=== PATIENT | female | born 1960 | race Caucasian/White ===

== ENCOUNTER → 2016-04-28 | Outpatient (CLI) | payer MEDICAID | LOC: RAD 10:15 | PROVIDERS: ATTEND Internal Medicine Medical Oncology | DX: C34.12 Malignant neoplasm of upper lobe, left bronchus or lung (principal) | CPT/HCPCS: 71260 ==

== ENCOUNTER → 2016-06-09 | Outpatient (CLI) | payer MEDICAID | LOC: RAD 12:53 | PROVIDERS: ATTEND Internal Medicine Medical Oncology | DX: C34.12 Malignant neoplasm of upper lobe, left bronchus or lung (principal); R10.9 Unspecified abdominal pain | CPT/HCPCS: 71260; 74160 ==

== ENCOUNTER 2016-06-16 11:54 | Outpatient (CLI) | payer MEDICAID ==
[~2016-06-16 11:54] MED LIST: ACETAMINOPHEN 325 MG TABLET PO PRN; DIPHENHYDRAMINE HCL 25 MG CAPSULE PO PRN; FUROSEMIDE INJ/PF 20 MG/2 ML SDV IV PRN; NORMAL SALINE 1000 ML 1,000 ML IV PRN
[2016-06-16 13:20] LABS: HEMATOCRIT 20.9 % (36.0-47.0); HGB HCT DIFFERENCE 0.7; MEAN CORPUSCULAR HEMOGLOBIN 34.1 pg (27.0-33.4); MEAN CORPUSCULAR HGB CONC 34.7 g/dL (32.0-36.0); MEAN CORPUSCULAR VOLUME 98 fl (80-97); RED BLOOD COUNT 2.13 10^6/uL (3.72-5.28); RED CELL DISTRIBUTION WIDTH 21.6 % (11.5-14.0)
[2016-06-16 14:01] LABS: HEMOGLOBIN 7.2 g/dL (12.0-15.5); WHITE BLOOD COUNT 0.6 10^3/uL (4.0-10.5)
[2016-06-16] MEDS ORDERED: NICOTINE 7 MG/24 HR PATCH.TD24 TD ONE (16:00)
[2016-06-16] MEDS ORDERED: NYSTATIN/DEXAMETH/DIPHEN SUSP 120 ML PO PRN (16:00)
[2016-06-16] MEDS ORDERED: OXYCODONE-ACETAMINOPHEN 5-325 MG TABLET PO PRN (16:00)
[2016-06-16] MEDS ORDERED: MORPHINE SULFATE SR 30 MG TABLET PO SCH (22:00)
[2016-06-16] MEDS ORDERED: AMITRIPTYLINE HCL 50 MG TABLET PO SCH (22:00)
[2016-06-17 05:01] LABS: HEMATOCRIT 25.2 % (36.0-47.0); HGB HCT DIFFERENCE 1.8; MEAN CORPUSCULAR HGB CONC 35.9 g/dL (32.0-36.0); RED BLOOD COUNT 2.74 10^6/uL (3.72-5.28); RED CELL DISTRIBUTION WIDTH 22.1 % (11.5-14.0)
[2016-06-17 05:42] LABS: MEAN CORPUSCULAR VOLUME 92 fl (80-97)
[2016-06-17 08:06] VITALS: BP 127/82
[2016-06-17 15:26] LABS: PATH REVIEW PATHOLOGIST REVIEWED
== END 2016-06-17 09:30 | disposition home or self-care (01) ==
LOC: II 11:54 → 5 12:14 → II 06-17 09:30
PROVIDERS: ATTEND Internal Medicine Medical Oncology
PROC: 30233N1 Transfusion of Nonautologous Red Blood Cells into Peripheral Vein, Percutaneous Approach (ICD-10-PCS; 2016-06-16)
PROC: 30233R1 Transfusion of Nonautologous Platelets into Peripheral Vein, Percutaneous Approach (ICD-10-PCS; principal; 2016-06-17)
DX: D64.9 Anemia, unspecified (principal); D70.9 Neutropenia, unspecified; D69.6 Thrombocytopenia, unspecified
CPT/HCPCS: 36415; 36430; 85027; 86850; 86900; 86901; 86920; J1940; J3490; P9016; P9035

== ENCOUNTER 2016-07-13 11:43 | Outpatient (CLI) | payer MEDICAID ==
[~2016-07-13 11:43] MED LIST changes: -ACETAMINOPHEN 325 MG TABLET PO PRN; -DIPHENHYDRAMINE HCL 25 MG CAPSULE PO PRN; -NORMAL SALINE 1000 ML 1,000 ML IV PRN
[2016-07-13] MEDS ORDERED: NORMAL SALINE 250 ML IV PRN (12:35)
[2016-07-13 12:50] LABS: HEMATOCRIT 23.3 % (36.0-47.0); HEMOGLOBIN 8.2 g/dL (12.0-15.5); HGB HCT DIFFERENCE 1.3; MEAN CORPUSCULAR HEMOGLOBIN 33.5 pg (27.0-33.4); MEAN CORPUSCULAR HGB CONC 35.4 g/dL (32.0-36.0); MEAN CORPUSCULAR VOLUME 95 fl (80-97); RED BLOOD COUNT 2.46 10^6/uL (3.72-5.28); RED CELL DISTRIBUTION WIDTH 22.5 % (11.5-14.0); WHITE BLOOD COUNT 16.5 10^3/uL (4.0-10.5)
[2016-07-13] MEDS: DIPHENHYDRAMINE HCL 25 MG CAPSULE PO PRN ×2 (14:49→20:20)
[2016-07-13] MEDS: ACETAMINOPHEN 325 MG TABLET PO PRN ×2 (14:50→20:20)
[2016-07-13 20:59] VITALS: BP 107/71
[2016-07-13 22:11] LABS: HEMOGLOBIN 8.1 g/dL (12.0-15.5); HGB HCT DIFFERENCE 1.3; MEAN CORPUSCULAR HEMOGLOBIN 32.5 pg (27.0-33.4); MEAN CORPUSCULAR HGB CONC 35.3 g/dL (32.0-36.0); MEAN CORPUSCULAR VOLUME 92 fl (80-97); RED BLOOD COUNT 2.49 10^6/uL (3.72-5.28); RED CELL DISTRIBUTION WIDTH 21.6 % (11.5-14.0); WHITE BLOOD COUNT 15.2 10^3/uL (4.0-10.5)
== END 2016-07-13 22:10 | disposition home or self-care (01) ==
LOC: II 11:43 → 2S 11:47 → II 22:10
PROVIDERS: ATTEND Internal Medicine Medical Oncology
PROC: 30233N1 Transfusion of Nonautologous Red Blood Cells into Peripheral Vein, Percutaneous Approach (ICD-10-PCS; principal; 2016-07-13)
PROC: 30233R1 Transfusion of Nonautologous Platelets into Peripheral Vein, Percutaneous Approach (ICD-10-PCS; 2016-07-13)
DX: C34.12 Malignant neoplasm of upper lobe, left bronchus or lung (principal)
CPT/HCPCS: 86900; 86901; 36415; 36430; 86850; 85027; 86920; P9016; P9035; J3490 ×2; J7050

== ENCOUNTER 2016-07-17 05:06 | Inpatient (IN) | payer MEDICAID ==
[2016-07-17] MEDS ORDERED: ONDANSETRON HCL INJ/PF 4 MG/2 ML SDV IV ONE (08:13)
[2016-07-17] MEDS ORDERED: NORMAL SALINE 1000 ML 500 ML IV ONE (08:13)
--- NOTE | 2016-07-17 08:18 | ER Document Report ---
ED General - General Mode of Arrival: Medic Information source: Patient, Relative - daughter TRAVEL OUTSIDE OF THE [place] IN LAST 30 DAYS: No - HPI Onset: This morning - 0345 Associated symptoms: Other - see notes above <ILDEFONSO MYERS - Last Filed: 07/17/16 11:38> <ALISON HINTON - Last Filed: 07/17/16 11:41> - General Chief Complaint: Syncope Stated Complaint: SYNCOPAL EPISODE Notes: 56 year old female with history of left upper lobe lung cancer, rheumatoid arthritis, CAD, diabetes mellitus Type II, and hypothyroidism presents to the ED via EMS after being found on the floor by her daughter yelling for help at 0345 this morning. Daughter states that the patient was diaphoretic, had vomited , was having shaking episodes, and having difficulty breathing. Daughter was able to calm the patient's breathing befoer EMS arrived. Daughter reports that the patient had 2-3 episodes where the patient's body would go tense and shake for a couple seconds. Patient was not talking during these episodes, but would immediately return to talking after these episodes. Patient is complaining of bilateral arm numbness and clenched hands. Daughter states that the clenched hands are new, and started over the past 2 days. Patient receives chemotherapy once a month which affects the patient's electrolyte balance as per the daughter. Patient received a blood and plasma transfusion and a neupogen shot 4 days ago and usually feels much better following the transfusions. Patient reports that she feels much better than earlier this morning. Patient was started on Levaquin on 07/09/2016, but the daughter is unsure why. (ILDEFONSO MYERS) (ALISON HINTON) - Related Data Allergies/Adverse Reactions: No Known Allergies Allergy (Unverified 02/12/16 09:38) Past Medical History - General Information source: Patient - Social History Smoking Status: Current Every Day Smoker Cigarette use (# per day): Yes - 0.25 ppd Family History: Reviewed & Not Pertinent - Past Medical History Cardiac Medical History: Reports: Hx Coronary Artery Disease - CHOLESTEROL Denies: Hx Heart Attack Pulmonary Medical History: Reports: Hx Bronchitis, Hx COPD, Hx Pneumonia Denies: Hx Asthma Neurological Medical History: Denies: Hx Cerebrovascular Accident, Hx Seizures Endocrine Medical History: Reports: Hx Diabetes Mellitus Type 2, Hx Hypothyroidism Musculoskeltal Medical History: Denies Hx Arthritis Past Surgical History: Reports: Hx Cardiac Catheterization, Hx Coronary Stent - 2010 - Immunizations Hx Diphtheria, Pertussis, Tetanus Vaccination: No <ILDEFONSO MYERS - Last Filed: 07/17/16 11:38> Review of Systems - Review of Systems Constitutional: See HPI, Diaphoresis EENT: No symptoms reported Cardiovascular: No symptoms reported Respiratory: No symptoms reported Gastrointestinal: See HPI, Vomiting Genitourinary: No symptoms reported Female Genitourinary: No symptoms reported Musculoskeletal: No symptoms reported Skin: No symptoms reported Hematologic/Lymphatic: No symptoms reported Neurological/Psychological: See HPI, Numbness - bilateral arm numbness, Other - patient was having episodes of whole body tense and shaking -: Yes All other systems reviewed and negative <ILDEFONSO MYERS - Last Filed: 07/17/16 11:38> Physical Exam - General General appearance: Alert In distress: None - HEENT Head: Normocephalic, Atraumatic Eyes: Normal Extraocular movements intact: Yes Pupils: PERRL Mouth/Lips: Other - Presence of stomatitis secondary to the chemotherapy. No: Normal Mucous membranes: Dry - Respiratory Respiratory status: No respiratory distress Breath sounds: Normal - Cardiovascular Rhythm: Regular Heart sounds: Normal auscultation - Abdominal Inspection: Normal Distension: No distension Tenderness: Nontender - Back Back: Normal - Extremities General upper extremity: Normal ROM. No: Normal inspection - see hand exam below, Edema General lower extremity: Normal inspection, Normal ROM. No: Edema Hand: Other - Bilateral hands are clenched with signs of ulnar deviation secondary to RA. Able to unclench hands and fingers with manual manipulation.. No: Normal - Neurological Neuro grossly intact: Yes Orientation: AAOx4 - Psychological Associated symptoms: Normal affect, Normal mood - Skin Skin Temperature: Warm Skin Moisture: Dry Skin Color: Normal <ILDEFONSO MYERS - Last Filed: 07/17/16 11:38> Course - Laboratory Result Diagrams: 07/17/16 05:35 07/17/16 05:35 <ILDEFONSO MYERS - Last Filed: 07/17/16 11:38> - Laboratory Result Diagrams: 07/17/16 05:35 07/17/16 05:35 - Consults Dr. Kelley Time consulted: 11:35 Consulted provider: will come to ER <ALISON HINTON - Last Filed: 07/17/16 11:41> - Vital Signs Vital signs: Temp Pulse Resp BP Pulse Ox 20 114/81 100 07/17/16 05:59 07/17/16 07:52 07/17/16 10:40 - Laboratory Laboratory results interpreted by me: 07/17/16 07/17/16 05:35 05:35 WBC 14.4 H RBC 2.72 L Hgb 8.8 L Hct 25.3 L RDW 21.9 H Plt Count 34 L Seg Neuts % (Manual) 94 H Lymphocytes % (Manual) 4 L Monocytes % (Manual) 1 L Metamyelocytes % 1 H Abs Neuts (Manual) 13.7 H Potassium 2.7 L* Chloride 94 L Anion Gap 20 H Est GFR (Non-Af Amer) 58 L Calcium 4.3 L* Magnesium < 0.2 L* Direct Bilirubin 0.5 H AST 57 H Critical Care Note - Critical Care Note Total time excluding time spent on procedures (mins): 30 <ALISON HINTON - Last Filed: 07/17/16 11:41> Discharge <ILDEFONSO MYERS - Last Filed: 07/17/16 11:38> - Discharge Admitting Provider: Hospitalist Unit Admitted: Telemetry <ALISON HINTON - Last Filed: 07/17/16 11:41> - Discharge Clinical Impression: Hypocalcemia, Hypomagnesemia, Hypokalemia, Thrombocytopenia Anemia Qualifiers: Anemia type: unspecified type Qualified Code(s): D64.9 - Anemia, unspecified Condition: Stable Disposition: ADMITTED INPATIENT Scribe Attestation: 07/17/16 11:41 I personally performed the services described in the documentation, reviewed and edited the documentation which was dictated to the scribe in my presence, and it accurately records my words and actions. (ALISON HINTON) Scribe Documentation - Scribe Written by Kee:: Kee Aguilar, 07/17/2016 0858 acting as scribe for :: Gilmer <ILDEFONSO MYERS - Last Filed: 07/17/16 11:38>
[2016-07-17 08:39] LABS: ALANINE AMINOTRANSFERASE 37 U/L (9-52); ALBUMIN 3.6 g/dL (3.5-5.0); ALKALINE PHOSPHATASE 121 U/L (38-126); ASPARTATE AMINO TRANSFERASE 57 U/L (14-36); BILIRUBIN,DIRECT 0.5 mg/dL (0.0-0.4); BILIRUBIN,TOTAL 0.6 mg/dL (0.2-1.3); BLOOD UREA NITROGEN 12 mg/dL (7-20); CHLORIDE 94 mmol/L (98-107); CREATININE RESULT 0.99 mg/dL (0.52-1.25); GLUCOSE 105 mg/dL (75-110); TOTAL PROTEIN 6.6 g/dL (6.3-8.2)
[2016-07-17 08:49] LABS: CARBON DIOXIDE 25 mmol/L (22-30)
[2016-07-17 08:51] LABS: CALCIUM 4.3 mg/dL (8.4-10.2)
[2016-07-17 08:52] LABS: ANION GAP 20 (5-19); MAGNESIUM < 0.2 mg/dL (1.6-2.3); POTASSIUM 2.7 mmol/L (3.6-5.0)
[2016-07-17] MEDS ORDERED: CALCIUM GLUCONATE 1000 MG/10 ML INJ IV ONE ×2 (08:58→09:28)
[2016-07-17] MEDS ORDERED: MAGNESIUM SULFATE INJ 8 MEQ/2 ML IV ONE (08:59)
[2016-07-17] MEDS ORDERED: POTASSIUM CHLORIDE 10 MEQ TABLET.SA PO ONE (09:00)
[2016-07-17 09:28] LABS: HEMATOCRIT 25.3 % (36.0-47.0); HEMOGLOBIN 8.8 g/dL (12.0-15.5); HGB HCT DIFFERENCE 1.1; MEAN CORPUSCULAR HEMOGLOBIN 32.4 pg (27.0-33.4); MEAN CORPUSCULAR HGB CONC 34.9 g/dL (32.0-36.0); MEAN CORPUSCULAR VOLUME 93 fl (80-97); RED BLOOD COUNT 2.72 10^6/uL (3.72-5.28); RED CELL DISTRIBUTION WIDTH 21.9 % (11.5-14.0); WHITE BLOOD COUNT 14.4 10^3/uL (4.0-10.5)
[2016-07-17 09:33] LABS: ANISOCYTOSIS 3+; BASOPHILS % (MANUAL) 0 % (0-2); EOSINOPHILS % (MANUAL) 0 % (0-6); LYMPHOCYTES % (MANUAL) 4 % (13-45); OVALOCYTES 1+; POIKILOCYTOSIS 2+; ROULEAUX SLIGHT; TEAR DROP CELLS 1+; TOTAL CELLS COUNTED 100; TOXIC GRANULATION 1+
[2016-07-17] MEDS ORDERED: IPRATROPIUM/ALBUTEROL 0.5-2.5 MG/3 ML AMPUL NEB PRN (12:03)
[2016-07-17] MEDS ORDERED: POTASSI CL 40 MEQ/D5-1/2NS 1L 1,000 ML IV PRN (12:03)
[2016-07-17] MEDS ORDERED: ONDANSETRON HCL INJ/PF 4 MG/2 ML SDV IV PRN (12:11)
[2016-07-17] MEDS ORDERED: ACETAMINOPHEN 325 MG TABLET PO PRN (12:11)
[2016-07-17] MEDS ORDERED: MAGNESIUM HYDROXIDE SUSP 30 ML UDCUP PO PRN (12:11)
--- NOTE | 2016-07-17 13:16 | PDOC H&P ---
History of Present Illness Admission Date/PCP: 07/17/16 11:46 [facility] dr reeves Patient complains of: weakness and fall History of Present Illness: MARICEL SETHI is a 56 year old female presents to the ED after a fall at home very early this morning, she got up to bathroom but collapsed on the floor due to profound weakness and muscle cramping. she called out for her daughter who brought her to ED for evaluation via EMS as she was too weak to stand. She is undergoing chemo for Stage IV lung CA with last dose this past week and she usually suffers electrolyte and bone marrow abnormalities afterwards requiring infusions and transfusions which she claims to have received this past Wednesday but isn't clear what they infused/transfused at that time. I find her very pleasant but confused as to details, very poor historian and unfortunately her daughter has left the building to return to work and unavailable to me at this time. Her daughter notes that she got calcium and potassium last week with IVFs and neupogen shots, she got 1U PRBCs and 2 bags of plasma on Wednesday. Her daughter confirms that she would not want life prolonging aggressive interventions at this point and in fact is considering cessation of chemo, has started planning her , etc.; therefore wishes to be DNR. willow in ED found her to be very short of Mg, K+ and Ca++ resulting in myopathy and fall requiring hospitalization for aggressive IV replenishment. Past Medical History Cardiac Medical History: Reports: Coronary Artery Disease - CHOLESTEROL Denies: Myocardial Infarction, Hypertension Pulmonary Medical History: Reports: Bronchitis, Chronic Obstructive Pulmonary Disease (COPD), Pneumonia Denies: Asthma Neurological Medical History: Denies: Seizures Endocrine Medical History: Reports: Diabetes Mellitus Type 2, Hypothyroidism Musculoskeltal Medical History: Denies: Arthritis Hematology: Reports: Anemia Past Surgical History Past Surgical History: Reports: Cardiac Catheterization, Coronary Stent - 2009 Social History Smoking Status: Current Every Day Smoker Drugs: None - Advance Directive Resuscitation Status: Do Not Resuscitate Family History Family History: Reviewed & Not Pertinent Parental Family History Reviewed: Yes Children Family History Reviewed: Yes Sibling(s) Family History Reviewed.: Yes Medication/Allergy Allergies/Adverse Reactions: No Known Allergies Allergy (Unverified 02/12/16 09:38) Review of Systems ROS unobtainable: Due to mental status Physical Exam Vital Signs: Temp Pulse Resp BP Pulse Ox 98.6 F 20 114/81 98 07/17/16 11:43 07/17/16 11:43 07/17/16 07:52 07/17/16 11:43 General appearance: PRESENT: no acute distress, disheveled, well-developed Head exam: PRESENT: other - hair loss Eye exam: PRESENT: EOMI. ABSENT: conjunctival injection, scleral icterus Mouth exam: PRESENT: dry mucosa, tongue midline Neck exam: PRESENT: full ROM. ABSENT: JVD, tenderness Respiratory exam: PRESENT: clear to auscultation joaquina, unlabored Cardiovascular exam: PRESENT: RRR. ABSENT: systolic murmur Pulses: PRESENT: normal carotid pulses, normal radial pulses GI/Abdominal exam: PRESENT: mass - palpable mass along the sternal border right , normal bowel sounds, soft Extremities exam: PRESENT: +1 edema - diffuse pitting and nonpitting edema in all soft tissues Musculoskeletal exam: PRESENT: full ROM. ABSENT: tenderness Neurological exam: PRESENT: alert, awake, oriented to person, oriented to place. ABSENT: oriented to time, oriented to situation Psychiatric exam: PRESENT: appropriate affect, normal mood Skin exam: PRESENT: pallor. ABSENT: warm - cool and clammy Results Laboratory Results: labs reviewed cbc shows leukocytosis, anemia, plts 34; K 2.7, Mg undetectable Assessment & Plan - Diagnosis (1) Lung cancer metastatic to bone Is this a current diagnosis for this admission?: YesPlan: stage 4 receiving palliative chemo recently (2) Anemia Qualifiers: Anemia type: unspecified type Qualified Code(s): D64.9 - Anemia, unspecified Is this a current diagnosis for this admission?: YesPlan: s/p 1u PRBCs this past Wednesday, will likely drop again with IVFs and treatment of her electrolytes (3) Hypocalcemia Is this a current diagnosis for this admission?: YesPlan: s/p 2gms IV Ca in ED, will repeat this evening and continue to replenish (4) Hypokalemia Is this a current diagnosis for this admission?: YesPlan: received 40meq oral in ED, add KCL to IVFs and ck again this evening, continue replenishment (5) Hypomagnesemia Is this a current diagnosis for this admission?: YesPlan: critical levels leading to muscle weakness and fall, low enough to put her at significant risk for seizures, cardiac dysrhythmias, etc. and warrants aggressive replenishment overnight in hospital (7) DNR (do not resuscitate) Is this a current diagnosis for this admission?: Yes - Time Time Spent: Greater than 70 Minutes Medications reviewed and adjusted accordingly: Yes Anticipated discharge: Home Within: within 48 hours - Inpatient Certification Based on my medical assessment, after consideration of the patient's comorbidities, presenting symptoms, or acuity I expect that the services needed warrant INPATIENT care.: Yes I certify that my determination is in accordance with my understanding of Medicare's requirements for reasonable and necessary INPATIENT services [42 CFR 412.3e].: Yes Medical Necessity: Significant Comorbidiites Make Outpatient Treatment Too Risky , Need Close Monitoring Due to Risk of Patient Decompensation, Need For IV Fluids, Risk of Complication if Not Cared For in Hospital
[2016-07-17 13:17] LABS: APPEARANCE,URINE CLEAR; BILIRUBIN,URINE NEGATIVE (NEGATIVE); GLUCOSE, URINE NEGATIVE (NEGATIVE); KETONES,URINE TRACE mg/dL (NEGATIVE); LEUKOCYTE ESTERASE,URINE NEGATIVE (NEGATIVE); NITRITE,URINE NEGATIVE (NEGATIVE); PROTEIN,URINE NEGATIVE (NEGATIVE); URINE SPECIFIC GRAVITY 1.006; UROBILINOGEN,URINE NEGATIVE mg/dL (<2.0)
[2016-07-17] MEDS ORDERED: MAGNESIUM SULFATE 4 GM/100 ML RTUPB IV ONE (13:30)
[2016-07-17] MEDS ORDERED: PROCHLORPERAZINE MALEATE 10 MG TABLET PO PRN (15:33)
[2016-07-17 16:05] LABS: PROTHROMBIN TIME 14.6 SEC (11.4-15.4)
[2016-07-17] MEDS ORDERED: NICOTINE 21 MG/24 HR PATCH.TD24 TD ONE (16:30)
[2016-07-17] MEDS ORDERED: LANSOPRAZOLE 30 MG TAB.RAP.DR PO ONE (18:00)
[2016-07-17] MEDS: AMITRIPTYLINE HCL 50 MG TABLET PO SCH (21:27)
[2016-07-17] MEDS: MORPHINE SULFATE SR 30 MG TABLET PO SCH (21:27)
[2016-07-17] MEDS: FLUOXETINE HCL 20 MG CAPSULE PO SCH (21:28)
[2016-07-17 22:41] LABS: ANION GAP 14 (5-19); BLOOD UREA NITROGEN 10 mg/dL (7-20); CARBON DIOXIDE 26 mmol/L (22-30); CHLORIDE 95 mmol/L (98-107); CREATININE RESULT 0.94 mg/dL (0.52-1.25); GLUCOSE 93 mg/dL (75-110); SODIUM 134.8 mmol/L (137-145)
[2016-07-17 23:08] LABS: POTASSIUM 2.6 mmol/L (3.6-5.0)
[2016-07-17 23:09] LABS: CALCIUM 4.9 mg/dL (8.4-10.2)
[2016-07-17] MEDS ORDERED: POTASSIUM CHLORIDE 20 MEQ/15 ML UDCUP PO ONE (23:13)
[2016-07-17 23:19] LABS: ADD ON TESTING BLD IN LAB ACKNOWLEDGE
[2016-07-17 23:28] LABS: ALBUMIN 3.3 g/dL (3.5-5.0)
[2016-07-17 23:40] LABS: MAGNESIUM 1.6 mg/dL (1.6-2.3)
[2016-07-18] MEDS ORDERED: CALCIUM GLUCONATE 1000 MG/10 ML INJ IV ONE ×3 (00:06→14:00)
[2016-07-18] MEDS: POTASSIUM CHLORIDE 20 MEQ/15 ML UDCUP PO SCH ×4 (01:43→08:08)
[2016-07-18 03:07] LABS: ALBUMIN 3.3 g/dL (3.5-5.0); MAGNESIUM 1.4 mg/dL (1.6-2.3)
[2016-07-18 03:18] LABS: CALCIUM 5.6 mg/dL (8.4-10.2)
[2016-07-18] MEDS ORDERED: MAGNESIUM SULFATE/D5W 100 ML IV SCH (03:30)
[2016-07-18 03:43] LABS: ADD ON TESTING BLD IN LAB ACKNOWLEDGE
[2016-07-18 03:59] LABS: POTASSIUM 2.9 mmol/L (3.6-5.0)
[2016-07-18] MEDS ORDERED: LANSOPRAZOLE 30 MG TAB.RAP.DR PO SCH (06:00)
[2016-07-18 06:35] LABS: HEMATOCRIT 22.9 % (36.0-47.0); HEMOGLOBIN 8.1 g/dL (12.0-15.5); HGB HCT DIFFERENCE 1.4; MEAN CORPUSCULAR HEMOGLOBIN 32.4 pg (27.0-33.4); MEAN CORPUSCULAR HGB CONC 35.3 g/dL (32.0-36.0); MEAN CORPUSCULAR VOLUME 92 fl (80-97); RED BLOOD COUNT 2.49 10^6/uL (3.72-5.28); RED CELL DISTRIBUTION WIDTH 21.8 % (11.5-14.0); WHITE BLOOD COUNT 11.9 10^3/uL (4.0-10.5)
[2016-07-18 06:41] LABS: ALBUMIN 3.3 g/dL (3.5-5.0); ANION GAP 11 (5-19); BLOOD UREA NITROGEN 9 mg/dL (7-20); CARBON DIOXIDE 28 mmol/L (22-30); CHLORIDE 98 mmol/L (98-107); CREATININE RESULT 0.84 mg/dL (0.52-1.25); GLUCOSE 108 mg/dL (75-110); MAGNESIUM 1.5 mg/dL (1.6-2.3); PHOSPHORUS 4.7 mg/dL (2.5-4.5); POTASSIUM 3.1 mmol/L (3.6-5.0); SODIUM 137.2 mmol/L (137-145)
[2016-07-18 06:51] LABS: CALCIUM 6.4 mg/dL (8.4-10.2)
[2016-07-18 07:13] LABS: BASOPHILS % (MANUAL) 0 % (0-2); EOSINOPHILS % (MANUAL) 1 % (0-6); LYMPHOCYTES % (MANUAL) 8 % (13-45); TOTAL CELLS COUNTED 100
[2016-07-18 07:16] LABS: ANISOCYTOSIS 3+; OVALOCYTES 1+; POIKILOCYTOSIS 1+; TOXIC GRANULATION SLIGHT
[2016-07-18 07:17] LABS: TARGET CELLS SLIGHT; TEAR DROP CELLS SLIGHT
[2016-07-18] MEDS: LANSOPRAZOLE 30 MG TAB.RAP.DR PO SCH ×2 (08:09→15:04)
[2016-07-18] MEDS: LEVOTHYROXINE SODIUM 0.075 MG TABLET PO SCH (08:09)
[2016-07-18] MEDS: MAGNESIUM SULFATE 1 GM/D5W 100 ML IV SCH ×2 (08:16→10:30)
[2016-07-18] MEDS ORDERED: POTASSIUM CHLORIDE 20 MEQ/15 ML UDCUP PO SCH (08:30)
--- NOTE | 2016-07-18 10:28 | PDOC PROGRESS REPORT ---
Subjective Progress Note for:: 07/18/16 Subjective:: reason for visit: f/u hypomg/K/Ca, lung ca hospital course: MARICEL SETHI is a 56 year old female presents to the ED after a fall at home very early this morning, she got up to bathroom but collapsed on the floor due to profound weakness and muscle cramping. she called out for her daughter who brought her to ED for evaluation via EMS as she was too weak to stand. She is undergoing chemo for Stage IV lung CA with last dose this past week and she usually suffers electrolyte and bone marrow abnormalities afterwards requiring infusions and transfusions which she claims to have received this past Wednesday but isn't clear what they infused/transfused at that time. I find her very pleasant but confused as to details, very poor historian and unfortunately her daughter has left the building to return to work and unavailable to me at this time. Her daughter notes that she got calcium and potassium last week with IVFs and neupogen shots, she got 1U PRBCs and 2 bags of plasma on Wednesday. Her daughter confirms that she would not want life prolonging aggressive interventions at this point and in fact is considering cessation of chemo, has started planning her , etc.; therefore wishes to be DNR. eval in ED found her to be very short of Mg, K+ and Ca++ resulting in myopathy and fall requiring hospitalization for aggressive IV replenishment. nursing and daughter report some intermittent confusion and short term memory loss, takes her awhile to reorient especially upon waking or during the night. I found her resting comfortably and she remembers me from yesterday, place, time and circumstances. ROS: she denies muscle cramps or contractures, TORRES, dizziness, N/V/D, abd pain, chest pain or SOA. total 10 systems reviewed, remaining systems negative. Physical Exam Vital Signs: Temp Pulse Resp BP Pulse Ox 98.3 F 81 18 106/65 98 07/18/16 04:42 07/18/16 04:42 07/18/16 04:42 07/18/16 04:42 07/18/16 04:42 Intake & Output 07/17/16 07/18/16 07/19/16 06:59 06:59 06:59 Intake Total 650 Output Total 1100 Balance -450 Weight 51.9 kg General appearance: PRESENT: no acute distress, well-developed, well-nourished Head exam: PRESENT: atraumatic, normocephalic Eye exam: PRESENT: EOMI. ABSENT: scleral icterus Mouth exam: PRESENT: moist, neck supple Neck exam: PRESENT: full ROM. ABSENT: JVD Respiratory exam: PRESENT: clear to auscultation joaquina, unlabored. ABSENT: accessory muscle use Cardiovascular exam: PRESENT: RRR. ABSENT: systolic murmur GI/Abdominal exam: PRESENT: normal bowel sounds, soft. ABSENT: tenderness Extremities exam: PRESENT: +1 edema Musculoskeletal exam: PRESENT: full ROM. ABSENT: tenderness Neurological exam: PRESENT: alert, awake, oriented to person, oriented to place , oriented to situation Psychiatric exam: PRESENT: appropriate affect, normal mood Skin exam: PRESENT: pallor, warm Results Laboratory Results: 07/18/16 05:58 07/18/16 05:58 07/17/16 07/17/16 07/18/16 22:06 22:06 02:41 WBC RBC Hgb Hct MCV MCH MCHC RDW Plt Count Seg Neutrophils % Lymphocytes % Monocytes % Eosinophils % Basophils % Absolute Neutrophils Absolute Lymphocytes Absolute Monocytes Absolute Eosinophils Absolute Basophils Sodium 134.8 L Potassium 2.6 L* Chloride 95 L Carbon Dioxide 26 Anion Gap 14 BUN 10 Creatinine 0.94 Est GFR ( Amer) > 60 Est GFR (Non-Af Amer) > 60 Glucose 93 Calcium 4.9 L* 5.6 L* Phosphorus Magnesium 1.6 D 1.4 L Albumin 3.3 L 3.3 L 07/18/16 07/18/16 07/18/16 02:41 05:58 05:58 WBC 11.9 H RBC 2.49 L Hgb 8.1 L Hct 22.9 L MCV 92 MCH 32.4 MCHC 35.3 RDW 21.8 H Plt Count 44 L Seg Neutrophils % Not Reportable Lymphocytes % Not Reportable Monocytes % Not Reportable Eosinophils % Not Reportable Basophils % Not Reportable Absolute Neutrophils Not Reportable Absolute Lymphocytes Not Reportable Absolute Monocytes Not Reportable Absolute Eosinophils Not Reportable Absolute Basophils Not Reportable Sodium 137.2 Potassium 2.9 L* 3.1 L Chloride 98 Carbon Dioxide 28 Anion Gap 11 BUN 9 Creatinine 0.84 Est GFR ( Amer) > 60 Est GFR (Non-Af Amer) > 60 Glucose 108 Calcium 6.4 L* Phosphorus 4.7 H Magnesium 1.5 L Albumin 3.3 L Assessment & Plan - Diagnosis (1) Lung cancer metastatic to bone Is this a current diagnosis for this admission?: YesPlan: stage 4 receiving palliative chemo recently (2) Anemia Qualifiers: Anemia type: unspecified type Qualified Code(s): D64.9 - Anemia, unspecified Is this a current diagnosis for this admission?: YesPlan: worse; s/p 1u PRBCs this past Wednesday, dropped again with IVFs and treatment of her electrolytes as expected, no obvious blood loss at this time. monitor and transfuse if <7 (3) Hypocalcemia Is this a current diagnosis for this admission?: YesPlan: improved but no back to baseline; s/p several gms IV Ca; continue to monitor and replenish (4) Hypokalemia Is this a current diagnosis for this admission?: YesPlan: improved but no back to baseline; ck again and continue replenishment (5) Hypomagnesemia Is this a current diagnosis for this admission?: YesPlan: improved but no back to baseline; critical levels leading to muscle weakness and fall, low enough to put her at significant risk for seizures, cardiac dysrhythmias, etc. and warrants aggressive replenishment in hospital (6) Thrombocytopenia Plan: stable; continue to monitor (7) DNR (do not resuscitate) Is this a current diagnosis for this admission?: YesPlan: daughter confirms and is asking for hospice consult to consider their options - Time Time Spent with patient: 25-34 minutes Medications reviewed and adjusted accordingly: Yes Anticipated discharge: Home Within: within 48 hours
[2016-07-18] MEDS: MORPHINE SULFATE SR 30 MG TABLET PO SCH ×2 (10:29→23:09)
[2016-07-18] MEDS: NICOTINE 21 MG/24 HR PATCH.TD24 TD SCH (10:30)
[2016-07-18] MEDS: FLUOXETINE HCL 20 MG CAPSULE PO SCH ×2 (10:30→23:09)
[2016-07-18] MEDS: DOCUSATE SODIUM 100 MG CAPSULE PO SCH (10:32)
[2016-07-18 12:39] LABS: ANION GAP 14 (5-19); BLOOD UREA NITROGEN 7 mg/dL (7-20); CARBON DIOXIDE 26 mmol/L (22-30); CHLORIDE 98 mmol/L (98-107); CREATININE RESULT 0.76 mg/dL (0.52-1.25); GLUCOSE 116 mg/dL (75-110); MAGNESIUM 2.2 mg/dL (1.6-2.3); PHOSPHORUS 4.1 mg/dL (2.5-4.5); SODIUM 137.8 mmol/L (137-145)
[2016-07-18 12:47] LABS: CALCIUM 6.2 mg/dL (8.4-10.2); POTASSIUM 2.9 mmol/L (3.6-5.0)
[2016-07-18] MEDS ORDERED: CALCIUM GLUCONATE 1,000 MG in DEXTROSE 5%-WATER 50 ML IV ONE (12:49)
[2016-07-18] MEDS: POTASSIUM CHLORIDE 10 MEQ TABLET.SA PO SCH ×2 (14:18→23:08)
[2016-07-18] MEDS: POTASSI CL 20 MEQ/50 ML RIDER 20 MEQ/50 ML RTUPB IV SCH ×2 (14:58→16:36)
[2016-07-18] MEDS: OXYCODONE-ACETAMINOPHEN 5-325 MG TABLET PO PRN (15:04)
[2016-07-18] MEDS: AMITRIPTYLINE HCL 50 MG TABLET PO SCH (23:09)
[2016-07-19 04:56] LABS: HEMATOCRIT 23.4 % (36.0-47.0); HGB HCT DIFFERENCE 0.6; MEAN CORPUSCULAR HEMOGLOBIN 31.8 pg (27.0-33.4); MEAN CORPUSCULAR HGB CONC 34.1 g/dL (32.0-36.0); MEAN CORPUSCULAR VOLUME 93 fl (80-97); RED BLOOD COUNT 2.51 10^6/uL (3.72-5.28); RED CELL DISTRIBUTION WIDTH 22.1 % (11.5-14.0); WHITE BLOOD COUNT 12.5 10^3/uL (4.0-10.5)
[2016-07-19 05:03] LABS: ALANINE AMINOTRANSFERASE 39 U/L (9-52); ALBUMIN 3.1 g/dL (3.5-5.0); ALKALINE PHOSPHATASE 132 U/L (38-126); ANION GAP 9 (5-19); ASPARTATE AMINO TRANSFERASE 62 U/L (14-36); BILIRUBIN,DIRECT 0.4 mg/dL (0.0-0.4); BILIRUBIN,TOTAL 0.5 mg/dL (0.2-1.3); BLOOD UREA NITROGEN 8 mg/dL (7-20); CARBON DIOXIDE 27 mmol/L (22-30); CHLORIDE 102 mmol/L (98-107); CREATININE RESULT 0.76 mg/dL (0.52-1.25); GLUCOSE 94 mg/dL (75-110); MAGNESIUM 1.4 mg/dL (1.6-2.3); PHOSPHORUS 3.6 mg/dL (2.5-4.5); POTASSIUM 3.6 mmol/L (3.6-5.0); SODIUM 138.3 mmol/L (137-145); TOTAL PROTEIN 5.9 g/dL (6.3-8.2)
[2016-07-19 05:18] LABS: CALCIUM 6.4 mg/dL (8.4-10.2)
[2016-07-19] MEDS: POTASSIUM CHLORIDE 10 MEQ TABLET.SA PO SCH ×3 (05:49→21:02)
[2016-07-19] MEDS: LEVOTHYROXINE SODIUM 0.075 MG TABLET PO SCH (08:31)
[2016-07-19] MEDS: LANSOPRAZOLE 30 MG TAB.RAP.DR PO SCH ×2 (08:31→16:47)
[2016-07-19] MEDS ORDERED: NORMAL SALINE 250 ML IV PRN ×2 (08:38)
[2016-07-19] MEDS ORDERED: CALCIUM GLUCONATE 1,000 MG in DEXTROSE 5%-WATER 50 ML IV ONE (08:38)
[2016-07-19] MEDS ORDERED: CALCIUM GLUCONATE 1000 MG/10 ML INJ IV ONE (10:00)
[2016-07-19] MEDS: MORPHINE SULFATE SR 30 MG TABLET PO SCH ×2 (10:08→21:02)
[2016-07-19] MEDS: FLUOXETINE HCL 20 MG CAPSULE PO SCH ×2 (10:09→21:02)
[2016-07-19] MEDS: MAGNESIUM SULFATE/D5W 100 ML IV SCH ×2 (10:09→12:24)
[2016-07-19] MEDS: NICOTINE 21 MG/24 HR PATCH.TD24 TD SCH (10:11)
[2016-07-19] MEDS: DOCUSATE SODIUM 100 MG CAPSULE PO SCH (10:12)
--- NOTE | 2016-07-19 10:34 | PDOC PROGRESS REPORT ---
Subjective Progress Note for:: 07/19/16 Subjective:: reason for visit: f/u hypomg/K/Ca, lung ca hospital course: MARICEL SETHI is a 56 year old female presents to the ED after a fall at home very early this morning, she got up to bathroom but collapsed on the floor due to profound weakness and muscle cramping. she called out for her daughter who brought her to ED for evaluation via EMS as she was too weak to stand. She is undergoing chemo for Stage IV lung CA with last dose this past week and she usually suffers electrolyte and bone marrow abnormalities afterwards requiring infusions and transfusions which she claims to have received this past Wednesday but isn't clear what they infused/transfused at that time. I find her very pleasant but confused as to details, very poor historian and unfortunately her daughter has left the building to return to work and unavailable to me at this time. Her daughter notes that she got calcium and potassium last week with IVFs and neupogen shots, she got 1U PRBCs and 2 bags of plasma on Wednesday. Her daughter confirms that she would not want life prolonging aggressive interventions at this point and in fact is considering cessation of chemo, has started planning her , etc.; therefore wishes to be DNR. eval in ED found her to be very short of Mg, K+ and Ca++ resulting in myopathy and fall requiring hospitalization for aggressive IV replenishment. nursing and daughter report some intermittent confusion and short term memory loss, takes her awhile to reorient especially upon waking or during the night. I found her resting comfortably and she remembers me from yesterday, place, time and circumstances. ROS: no change from before, she is a bit more interactive and less confused this morning. she denies muscle cramps or contractures, TORRES, dizziness, N/V/D, abd pain, chest pain or SOA. total 10 systems reviewed, remaining systems negative. Physical Exam Vital Signs: Temp Pulse Resp BP Pulse Ox 98.1 F 83 16 105/65 99 07/19/16 07:38 07/19/16 07:38 07/19/16 07:38 07/19/16 07:38 07/19/16 07:38 Intake & Output 07/18/16 07/19/16 07/20/16 06:59 06:59 06:59 Intake Total 650 1225 Output Total 1100 2157 Balance -450 -932 Weight 51.9 kg 49.2 kg General appearance: PRESENT: no acute distress, cooperative, well-developed Head exam: PRESENT: atraumatic, normocephalic Eye exam: PRESENT: EOMI. ABSENT: conjunctival injection, scleral icterus Mouth exam: PRESENT: moist, neck supple Neck exam: PRESENT: full ROM. ABSENT: JVD Respiratory exam: PRESENT: clear to auscultation joaquina, unlabored. ABSENT: accessory muscle use Cardiovascular exam: PRESENT: RRR. ABSENT: systolic murmur Pulses: PRESENT: normal radial pulses Vascular exam: PRESENT: normal capillary refill GI/Abdominal exam: PRESENT: normal bowel sounds, soft. ABSENT: tenderness Musculoskeletal exam: PRESENT: full ROM. ABSENT: tenderness Neurological exam: PRESENT: alert, awake, oriented to person, oriented to place , oriented to time Psychiatric exam: PRESENT: appropriate affect, normal mood Skin exam: PRESENT: warm Results Laboratory Results: 07/19/16 03:39 07/19/16 03:39 07/18/16 07/19/16 07/19/16 12:13 03:39 03:39 WBC 12.5 H RBC 2.51 L Hgb 8.0 L Hct 23.4 L MCV 93 MCH 31.8 MCHC 34.1 RDW 22.1 H Plt Count 60 L Sodium 137.8 138.3 Potassium 2.9 L* 3.6 Chloride 98 102 Carbon Dioxide 26 27 Anion Gap 14 9 BUN 7 8 Creatinine 0.76 0.76 Est GFR ( Amer) > 60 > 60 Est GFR (Non-Af Amer) > 60 > 60 Glucose 116 H 94 Calcium 6.2 L* 6.4 L* Phosphorus 4.1 3.6 Magnesium 2.2 1.4 L Total Bilirubin 0.5 AST 62 H ALT 39 Alkaline Phosphatase 132 H Total Protein 5.9 L Albumin 3.1 L Blood Type Antibody Screen 07/19/16 09:00 WBC RBC Hgb Hct MCV MCH MCHC RDW Plt Count Sodium Potassium Chloride Carbon Dioxide Anion Gap BUN Creatinine Est GFR ( Amer) Est GFR (Non-Af Amer) Glucose Calcium Phosphorus Magnesium Total Bilirubin AST ALT Alkaline Phosphatase Total Protein Albumin Blood Type O POSITIVE Antibody Screen NEGATIVE Assessment & Plan - Diagnosis (1) Lung cancer metastatic to bone Is this a current diagnosis for this admission?: YesPlan: stable; stage 4 receiving palliative chemo recently (2) Anemia Qualifiers: Anemia type: unspecified type Qualified Code(s): D64.9 - Anemia, unspecified Is this a current diagnosis for this admission?: YesPlan: worse without overt s/s of blood loss, most likely BM dysfunction related to cancer and chemo; transfuse 2U PRBCs and monitor for effect. R&B discussed with pt and daughter and they agree to proceed, she has received blood in past without difficulty. (3) Hypocalcemia Is this a current diagnosis for this admission?: YesPlan: improved but not back to baseline; give another gram (4) Hypokalemia Is this a current diagnosis for this admission?: YesPlan: improved with rather aggressive regimen, continue to monitor (5) Hypomagnesemia Is this a current diagnosis for this admission?: YesPlan: improved but not back to baseline; give additional infusion and monitor (7) DNR (do not resuscitate) Is this a current diagnosis for this admission?: Yes - Time Time Spent with patient: 25-34 minutes Medications reviewed and adjusted accordingly: Yes Anticipated discharge: Home Within: within 24 hours - Plan Summary Plan Summary: d/w daughter by phone, hopefully home in am
[2016-07-19] MEDS: OXYCODONE-ACETAMINOPHEN 5-325 MG TABLET PO PRN (13:14)
[2016-07-19] MEDS ORDERED: NYSTATIN/DEXAMETH/DIPHEN SUSP 120 ML PO ONE (17:01)
[2016-07-19] MEDS: NYSTATIN/DEXAMETH/DIPHEN SUSP 120 ML PO SCH ×2 (18:05→21:02)
[2016-07-19] MEDS ORDERED: MAGNESIUM SULFATE/D5W 1 GM/100 ML RTUPB IV ONE (19:45)
[2016-07-19] MEDS: AMITRIPTYLINE HCL 50 MG TABLET PO SCH (21:02)
[2016-07-19 21:07] LABS: HEMATOCRIT 32.5 % (36.0-47.0); HGB HCT DIFFERENCE 0.5; MEAN CORPUSCULAR HEMOGLOBIN 30.8 pg (27.0-33.4); MEAN CORPUSCULAR HGB CONC 33.8 g/dL (32.0-36.0); MEAN CORPUSCULAR VOLUME 91 fl (80-97); RED BLOOD COUNT 3.56 10^6/uL (3.72-5.28); RED CELL DISTRIBUTION WIDTH 19.4 % (11.5-14.0); WHITE BLOOD COUNT 14.9 10^3/uL (4.0-10.5)
[2016-07-19 21:36] LABS: BAND NEUTROPHILS % (MANUAL) 1 % (3-5); BASOPHILS % (MANUAL) 0 % (0-2); EOSINOPHILS % (MANUAL) 0 % (0-6); LYMPHOCYTES % (MANUAL) 11 % (13-45); TOTAL CELLS COUNTED 100
[2016-07-19 21:37] LABS: ANISOCYTOSIS 2+; TOXIC GRANULATION 1+
[2016-07-19 21:40] LABS: TEAR DROP CELLS SLIGHT
[2016-07-19 21:41] LABS: OVALOCYTES 1+; POIKILOCYTOSIS 1+
[2016-07-20 05:54] LABS: HEMATOCRIT 32.8 % (36.0-47.0); HEMOGLOBIN 11.4 g/dL (12.0-15.5); HGB HCT DIFFERENCE 1.4; MEAN CORPUSCULAR HEMOGLOBIN 31.6 pg (27.0-33.4); MEAN CORPUSCULAR HGB CONC 34.8 g/dL (32.0-36.0); MEAN CORPUSCULAR VOLUME 91 fl (80-97); RED BLOOD COUNT 3.61 10^6/uL (3.72-5.28); RED CELL DISTRIBUTION WIDTH 19.4 % (11.5-14.0); WHITE BLOOD COUNT 14.1 10^3/uL (4.0-10.5)
[2016-07-20] MEDS: POTASSIUM CHLORIDE 10 MEQ TABLET.SA PO SCH ×2 (06:07→20:27)
[2016-07-20 06:19] LABS: ANION GAP 9 (5-19); BLOOD UREA NITROGEN 10 mg/dL (7-20); CALCIUM 7.6 mg/dL (8.4-10.2); CARBON DIOXIDE 28 mmol/L (22-30); CHLORIDE 104 mmol/L (98-107); CREATININE RESULT 0.86 mg/dL (0.52-1.25); GLUCOSE 90 mg/dL (75-110); MAGNESIUM 1.4 mg/dL (1.6-2.3); POTASSIUM 4.8 mmol/L (3.6-5.0); SODIUM 140.9 mmol/L (137-145)
[2016-07-20] MEDS: LANSOPRAZOLE 30 MG TAB.RAP.DR PO SCH ×2 (08:20→20:29)
[2016-07-20] MEDS: LEVOTHYROXINE SODIUM 0.075 MG TABLET PO SCH (08:20)
[2016-07-20] MEDS ORDERED: MAGNESIUM SULFATE 4 GM/100 ML RTUPB IV ONE (09:00)
[2016-07-20] MEDS: FLUOXETINE HCL 20 MG CAPSULE PO SCH ×2 (09:56→21:13)
[2016-07-20] MEDS: MORPHINE SULFATE SR 30 MG TABLET PO SCH ×2 (09:56→21:13)
[2016-07-20] MEDS: NICOTINE 21 MG/24 HR PATCH.TD24 TD SCH (09:57)
[2016-07-20] MEDS: NYSTATIN/DEXAMETH/DIPHEN SUSP 120 ML PO SCH ×3 (10:00→21:13)
[2016-07-20] MEDS: DOCUSATE SODIUM 100 MG CAPSULE PO SCH (10:00)
--- NOTE | 2016-07-20 16:03 | PDOC PROGRESS REPORT ---
Subjective Progress Note for:: 07/20/16 Subjective:: reason for visit: f/u hypomg/K/Ca, lung ca hospital course: MARICEL SETHI is a 56 year old female presents to the ED after a fall at home very early this morning, she got up to bathroom but collapsed on the floor due to profound weakness and muscle cramping. she called out for her daughter who brought her to ED for evaluation via EMS as she was too weak to stand. She is undergoing chemo for Stage IV lung CA with last dose this past week and she usually suffers electrolyte and bone marrow abnormalities afterwards requiring infusions and transfusions which she claims to have received this past Wednesday but isn't clear what they infused/transfused at that time. I find her very pleasant but confused as to details, very poor historian and unfortunately her daughter has left the building to return to work and unavailable to me at this time. Her daughter notes that she got calcium and potassium last week with IVFs and neupogen shots, she got 1U PRBCs and 2 bags of plasma on Wednesday. Her daughter confirms that she would not want life prolonging aggressive interventions at this point and in fact is considering cessation of chemo, has started planning her , etc.; therefore wishes to be DNR. eval in ED found her to be very short of Mg, K+ and Ca++ resulting in myopathy and fall requiring hospitalization for aggressive IV replenishment. she has received large volumes of electrolyte replacement without clear source for GI or renal losses. she and her daughter have met with Josefa at [facility] and all parties agree that she's had enough and they want to switch the focus of her care to comfort measures with Hospice; daughter spoke with oncology who said they really have nothing further to offer her and now seem to be doing more harm than good. nursing and daughter report some intermittent confusion and short term memory loss, takes her awhile to reorient especially upon waking or during the night. I found her resting comfortably and she remembers me from yesterday, place, time and circumstances. ROS: no change from before, she is a bit more interactive and less confused this morning. she denies muscle cramps or contractures, TORRES, dizziness, N/V/D, abd pain, chest pain or SOA. total 10 systems reviewed, remaining systems negative. Physical Exam Vital Signs: Temp Pulse Resp BP Pulse Ox 99.1 F 86 20 121/71 99 07/20/16 12:04 07/20/16 12:04 07/20/16 12:04 07/20/16 12:04 07/20/16 12:04 Intake & Output 07/19/16 07/20/16 07/21/16 06:59 06:59 06:59 Intake Total 1225 1740 Output Total 2157 300 Balance -932 1440 Weight 49.2 kg 50.2 kg General appearance: PRESENT: no acute distress, well-developed, well-nourished Head exam: PRESENT: atraumatic, normocephalic Mouth exam: PRESENT: moist Neck exam: PRESENT: full ROM. ABSENT: tenderness Respiratory exam: PRESENT: clear to auscultation joaquina. ABSENT: accessory muscle use Cardiovascular exam: PRESENT: RRR. ABSENT: tachycardia Pulses: PRESENT: normal radial pulses, +1 pedal pulses bilateral GI/Abdominal exam: PRESENT: normal bowel sounds, soft. ABSENT: tenderness Extremities exam: PRESENT: +1 edema. ABSENT: calf tenderness Neurological exam: PRESENT: alert, awake, oriented to person, oriented to place. ABSENT: oriented to time, oriented to situation Psychiatric exam: PRESENT: appropriate affect, normal mood Skin exam: PRESENT: warm. ABSENT: dry Results Laboratory Results: 07/20/16 05:01 07/20/16 05:01 07/19/16 07/19/16 07/20/16 09:00 20:58 05:01 WBC 14.9 H 14.1 H RBC 3.56 L 3.61 L Hgb 11.0 L D 11.4 L Hct 32.5 L 32.8 L MCV 91 91 MCH 30.8 31.6 MCHC 33.8 34.8 RDW 19.4 H 19.4 H Plt Count 64 L 79 L Seg Neutrophils % Not Reportable Lymphocytes % Not Reportable Monocytes % Not Reportable Eosinophils % Not Reportable Basophils % Not Reportable Absolute Neutrophils Not Reportable Absolute Lymphocytes Not Reportable Absolute Monocytes Not Reportable Absolute Eosinophils Not Reportable Absolute Basophils Not Reportable Sodium Potassium Chloride Carbon Dioxide Anion Gap BUN Creatinine Est GFR ( Amer) Est GFR (Non-Af Amer) Glucose Calcium Phosphorus Magnesium Blood Type O POSITIVE Antibody Screen NEGATIVE 07/20/16 05:01 WBC RBC Hgb Hct MCV MCH MCHC RDW Plt Count Seg Neutrophils % Lymphocytes % Monocytes % Eosinophils % Basophils % Absolute Neutrophils Absolute Lymphocytes Absolute Monocytes Absolute Eosinophils Absolute Basophils Sodium 140.9 Potassium 4.8 Chloride 104 Carbon Dioxide 28 Anion Gap 9 BUN 10 Creatinine 0.86 Est GFR ( Amer) > 60 Est GFR (Non-Af Amer) > 60 Glucose 90 Calcium 7.6 L Phosphorus 4.0 Magnesium 1.4 L Blood Type Antibody Screen Assessment & Plan - Diagnosis (1) Lung cancer metastatic to bone Is this a current diagnosis for this admission?: YesPlan: stable; stage 4 previously receiving palliative chemo but electing not to pursue further treatment at this time, choosing instead to go home with Hospice tomorrow (Wednesday) when her daughter is off work and DME can be put in place. (2) Anemia Qualifiers: Anemia type: unspecified type Qualified Code(s): D64.9 - Anemia, unspecified Is this a current diagnosis for this admission?: Yes (3) Hypocalcemia Is this a current diagnosis for this admission?: Yes (4) Hypokalemia Is this a current diagnosis for this admission?: Yes (5) Hypomagnesemia Is this a current diagnosis for this admission?: Yes (7) DNR (do not resuscitate) Is this a current diagnosis for this admission?: Yes - Time Time Spent with patient: 25-34 minutes Anticipated discharge: Home, Hospice Within: within 24 hours
[2016-07-20] MEDS: AMITRIPTYLINE HCL 50 MG TABLET PO SCH (21:13)
[2016-07-21] MEDS: POTASSIUM CHLORIDE 10 MEQ TABLET.SA PO SCH ×2 (02:44→11:36)
[2016-07-21 06:28] LABS: ANION GAP 11 (5-19); BLOOD UREA NITROGEN 11 mg/dL (7-20); CALCIUM 8.6 mg/dL (8.4-10.2); CARBON DIOXIDE 28 mmol/L (22-30); CHLORIDE 103 mmol/L (98-107); CREATININE RESULT 0.87 mg/dL (0.52-1.25); GLUCOSE 99 mg/dL (75-110); MAGNESIUM 1.6 mg/dL (1.6-2.3); POTASSIUM 4.9 mmol/L (3.6-5.0); SODIUM 141.7 mmol/L (137-145)
[2016-07-21] MEDS: NYSTATIN/DEXAMETH/DIPHEN SUSP 120 ML PO SCH (10:00)
--- NOTE | 2016-07-21 11:31 | PDOC DISCHARGE SUMMARY ---
General - Admit/Disc Date/PCP Admission Date/Primary Care Provider: 07/17/16 12:04 Discharge Date: 07/21/16 - Discharge Diagnosis (1) Lung cancer metastatic to bone Is this a current diagnosis for this admission?: YesSummary: This 56-year-old woman has known lung cancer metastatic to bone. Prior to the hospitalization she was undergoing chemotherapy. He had poor tolerance of chemotherapy. He was admitted to the hospital with complications of chemotherapy. The decision was made to stop treatments. The patient is being discharged home with hospice. (2) Anemia Is this a current diagnosis for this admission?: YesSummary: The patient was admitted with profound weakness. Among her laboratory derangements was hemoglobin of 8.8 which dropped even further after fluid rehydration. Her lowest was 8.0. She was symptomatic. She was given 2 units of packed red blood cells on 07/19/2016. Her hemoglobin jean to 11.0 and on 07/20 was 11.4. (3) Hypocalcemia Is this a current diagnosis for this admission?: YesSummary: Hypocalcemia of 6.4 was present on admission, and a low of 6.2 was measured on . Received calcium supplementation and give fluid rehydration. On 07/21 the serum calcium is 8.6. (4) Hypokalemia Is this a current diagnosis for this admission?: YesSummary: Patient's potassium was 3.1 on admission and dropped to a low of 2.9 on 2016. She received potassium supplementation. On 07/21/2016 the potassium is 4.9. (5) Hypomagnesemia Is this a current diagnosis for this admission?: YesSummary: Serum magnesium was 1.5 on admission. The low was 1.4 on 07/19/2016. She received supplementation. On 07/21/2016 it is 1.6, normal. (6) Thrombocytopenia Summary: The patient's platelet count was 34,000 on admission. There were no overt signs of bleeding. Without treatment today, platelets have gradually jean to 79 ,000 on 07/20/2016. (7) DNR (do not resuscitate) Is this a current diagnosis for this admission?: YesSummary: This admission the decision was made to stop ongoing chemotherapy. The patient was changed to a DNR status. Hospice was consulted. Discharge plan is home with hospice. - Additional Information Resuscitation Status: Do Not Resuscitate Discharge Diet: As Tolerated Discharge Activity: Activity As Tolerated Home Medications: Amitriptyline HCl [Elavil 100 mg Tablet] 100 mg PO QHS 07/17/16 Calcium Carbonate/Vitamin D3 [Calcium 600-Vit D3 200 Tablet] 1 tab PO DAILY Alcorn Bowles Stephen 5 ml PO Q4HP PRN 07/17/16 Fluoxetine HCl [Prozac] 40 mg PO BID 07/17/16 Levothyroxine Sodium [Synthroid] 75 mcg PO QAM 07/17/16 Metformin HCl [Metformin HCl ER] 1,000 mg PO QAM 07/17/16 Morphine Sulfate [Morphine Sulfate ER] 30 mg PO Q12 07/17/16 Oxycodone HCl/Acetaminophen [Percocet 5-325 mg Tablet] 1 tab PO Q8HP PRN Pantoprazole Sodium [Protonix] 40 mg PO BID 07/17/16 Prochlorperazine Maleate [Compazine] 10 mg PO Q6HP PRN 07/17/16 Acetaminophen [Tylenol 325 mg Tablet] 650 mg PO Q4HP PRN #0 tablet 07/21/16 History of Present Illness History of Present Illness: MARICEL SETHI is a 56 year old female who presented to the ED after a fall at home on 07/17/2016. He had gotten up to the bathroom but collapsed on the floor due to profound weakness and muscle cramping. Patient was in the process of cancer chemotherapy for stage IV lung cancer with bone metastases. Test dose had been administered 1 week prior. Reported to usually suffering electrolyte and bone marrow abnormalities after chemotherapy infusions. In the ED she was found to have very low hemoglobin, calcium, potassium, magnesium, and platelets. DNR status was confirmed, but the patient was admitted for correction of her metabolic derangements. Hospital Course Hospital Course: Patient was treated with IV fluids and supplementation of calcium magnesium and potassium. He also received 2 units of packed red blood cell transfusion. With this, she felt significantly better. She felt stronger and she was reportedly less confused. During this hospitalization, the decision was made to stop ongoing chemotherapy efforts. Patient elected for a discharge home with hospice. Physical Exam Vital Signs: Temp Pulse Resp BP Pulse Ox 99.0 F 91 20 130/79 H 98 07/21/16 07:56 07/21/16 07:56 07/21/16 07:56 07/21/16 07:56 07/21/16 07:56 Intake & Output 07/20/16 07/21/16 07/22/16 06:59 06:59 06:59 Intake Total 1740 1788 Output Total 300 Balance 1440 1788 Weight 50.2 kg 49.2 kg General appearance: PRESENT: no acute distress Head exam: PRESENT: atraumatic, normocephalic Eye exam: PRESENT: conjunctiva pink, EOMI, PERRLA. ABSENT: scleral icterus Ear exam: PRESENT: normal external ear exam Mouth exam: PRESENT: moist, tongue midline Neck exam: ABSENT: carotid bruit, JVD, lymphadenopathy, thyromegaly Respiratory exam: PRESENT: clear to auscultation joaquina. ABSENT: rales, rhonchi, wheezes Cardiovascular exam: PRESENT: RRR. ABSENT: diastolic murmur, rubs, systolic murmur Pulses: PRESENT: normal dorsalis pedis pul Vascular exam: PRESENT: normal capillary refill GI/Abdominal exam: PRESENT: normal bowel sounds, soft. ABSENT: distended, guarding, mass, organolmegaly, rebound, tenderness Rectal exam: PRESENT: deferred Extremities exam: PRESENT: full ROM. ABSENT: calf tenderness, clubbing, pedal edema Neurological exam: PRESENT: alert, awake, oriented to person, oriented to place , oriented to time, oriented to situation, CN II-XII grossly intact. ABSENT: motor sensory deficit Psychiatric exam: PRESENT: appropriate affect, normal mood. ABSENT: homicidal ideation, suicidal ideation Skin exam: PRESENT: dry, intact, warm. ABSENT: cyanosis, rash Results Laboratory Results: 07/20/16 05:01 07/21/16 05:52 07/20/16 07/21/16 15:40 05:52 Sodium 141.7 Potassium 4.9 Chloride 103 Carbon Dioxide 28 Anion Gap 11 BUN 11 Creatinine 0.87 Est GFR ( Amer) > 60 Est GFR (Non-Af Amer) > 60 Glucose 99 Calcium 8.6 Magnesium 2.2 1.6 Qualifiers PATEINT BEING DISCHARGED WITH ANY OF THE FOLLOWING DIAGNOSIS?: No Plan Discharge Plan: The patient was discharged home with hospice. She will be followed by the hospice physicians and her primary care physician. Time Spent: Less than 30 Minutes
[2016-07-21] MEDS: LANSOPRAZOLE 30 MG TAB.RAP.DR PO SCH (11:35)
[2016-07-21] MEDS: LEVOTHYROXINE SODIUM 0.075 MG TABLET PO SCH (11:36)
[2016-07-21] MEDS: DOCUSATE SODIUM 100 MG CAPSULE PO SCH (11:36)
[2016-07-21] MEDS: FLUOXETINE HCL 20 MG CAPSULE PO SCH (11:36)
[2016-07-21] MEDS: NICOTINE 21 MG/24 HR PATCH.TD24 TD SCH (11:37)
[2016-07-21] MEDS: MORPHINE SULFATE SR 30 MG TABLET PO SCH (11:37)
[2016-07-21 13:12] VITALS: BP 92/67
== END 2016-07-21 14:48 | disposition hospice, home (50) | DRG 556 ==
LOC: ER 05:06 → UNDOADMIN 11:46 → EH 11:46 → 4N 13:27
PROC: 3E0F73Z Introduction of Anti-inflammatory into Respiratory Tract, Via Natural or Artificial Opening (ICD-10-PCS; 2016-07-17)
PROC: 30233N1 Transfusion of Nonautologous Red Blood Cells into Peripheral Vein, Percutaneous Approach (ICD-10-PCS; principal; 2016-07-19)
DX: M62.81 Muscle weakness (generalized) (principal); C34.90 Malignant neoplasm of unspecified part of unspecified bronchus or lung; C79.51 Secondary malignant neoplasm of bone; T45.1X5A Adverse effect of antineoplastic and immunosuppressive drugs, initial encounter; D64.9 Anemia, unspecified; E83.51 Hypocalcemia; E87.6 Hypokalemia; E83.42 Hypomagnesemia; D69.6 Thrombocytopenia, unspecified; F17.210 Nicotine dependence, cigarettes, uncomplicated; W18.39XA Other fall on same level, initial encounter; Y92.019 Unspecified place in single-family (private) house as the place of occurrence of the external cause; I25.10 Atherosclerotic heart disease of native coronary artery without angina pectoris; J44.9 Chronic obstructive pulmonary disease, unspecified; E11.9 Type 2 diabetes mellitus without complications; E03.9 Hypothyroidism, unspecified; M06.9 Rheumatoid arthritis, unspecified; Z66 Do not resuscitate; Z95.5 Presence of coronary angioplasty implant and graft; Z79.899 Other long term (current) drug therapy
CPT/HCPCS: 36415; 36430; 80048; 80053; 81001; 82040; 82310; 83735; 84100; 84132; 85025; 85027; 85610; 86850; 86900; 86901; 86920; 96365; 96375; 99291; J0610; J2405; J3475; J3480; J3490; J7030; P9016